=== PATIENT | female | born 1995 | race Caucasian/White ===

== ENCOUNTER 2023-12-06 15:35 | Inpatient (IN) | payer OTHER, SELFPAY ==
[2023-12-06] VITALS (40 sets, daily range): BP systolic 100–146; BP diastolic 58–81; PULSE 110–143; TEMP 37–37.1; O2SAT 97–100; BMI 24.4
[2023-12-06] MEDS: Lactated Ringers 1,000 ML 50 ML IV (15:50)
[2023-12-06 16:12] LABS: Absolute Lymphocyte Count 1.58 X10^3/uL (0.83-4.51); Absolute Neutrophil Count 18.6 X10^3/uL (2.0-7.7); Basophil# 0.06 X10^3/uL; Basophil% 0.3 % (0-1); Eosinophil# 0.02 X10^3/uL; Eosinophils% 0.1 % (0-5); Lymphocyte # 1.58 X10^3/ul (0.83-4.51); Lymphocyte % 7.2 % (19-41); Mean Corpuscular Hgb 21.3 pg (27.0-32.0); Mean Corpuscular Volume 70.9 fL (81-99); Mean Platelet Vol. 10.6 fl (6.2-12.0); Monocyte# 1.43 X10^3/uL; Monocyte% 6.5 % (0-10); NRBC Flagged by Analyzer 0 % (0-5); Neutrophil # 18.61 X10^3/uL (2.7-7.7); Neutrophil % 84.7 % (47-70); Platelet Count 416 K/mm3 (150-450); RBC Distribution Width CV 16.7 % (11.6-14.6); Red Blood Count 4.23 M/mm3 (4.2-5.4)
--- NOTE | 2023-12-06 16:26 | HP.PCM.OB_ITS ---
HPI - General General Date of Admission: 12/06/23 Date of Service: 12/06/23 HPI Narrative IRAIS MORA, is a 28 F who presents with LOF. Maternal Data Information Final GEORGIANA: 12/01/23 Gestational age: 40&5 PFSH PFSH Medical History (Updated 12/06/23 @ 16:[address] Brittany Sousa MD) Anxiety Surgical History (Updated 12/06/23 @ 16:[address] Brittany Sousa MD) [place] teeth removed NST FHR Rate Baby A Baseline: 130 Variability:: Minimal and Moderate Accelerations:: 15 x 15 Decelerations:: None NST Reactive:: Yes Uterine Activity:: Q 6 minutes Vital Signs Vital Signs Vital Signs: 12/06/23 15:04 12/06/23 15:04 12/06/23 15:09 Pulse Rate 143 H 139 H Pulse Ox 97 12/06/23 15:09 12/06/23 15:14 12/06/23 15:14 Pulse Rate 136 H Pulse Ox 97 97 12/06/23 15:20 12/06/23 15:20 12/06/23 15:25 Pulse Rate 120 H 122 H Pulse Ox 99 12/06/23 15:25 12/06/23 15:59 12/06/23 15:59 Pulse Rate 121 H Pulse Ox 98 98 12/06/23 16:04 12/06/23 16:04 12/06/23 16:09 Pulse Rate 120 H 121 H Pulse Ox 98 12/06/23 16:09 12/06/23 16:14 12/06/23 16:14 Pulse Rate 124 H Pulse Ox 99 99 12/06/23 16:19 12/06/23 16:19 12/06/23 16:24 Pulse Rate 122 H 124 H Pulse Ox 99 12/06/23 16:24 Pulse Rate Pulse Ox 99 Weight Weight: 147 lb Body Mass Index (BMI) 24.4 Physical Exam Const alert, oriented x3 and no apparent distress GI soft to palpation, non-tender and non-distended Inspection: gravid external exam normal Narrative: cvx - 1/70/-2 Extremity normal to inspection Labs Labs Labs: Blood Type Pending Antibody Screen Pending Hct 30.0 % (37-47) L Hgb 9.0 g/dL (12.0-15.0) L Syphilis Total Ab Pending See [facility] H&P Assessment & Plan (1) Post-term , 40-42 weeks of gestation: COMMENT: 28yo @ 40&5 PLAN: Plan Admit to L&D SROM - plan for induction with pitocin GBS negative EFW - less than 4500g, patient with adequate pelvis Pain - epidural as desired Routine care
[2023-12-06] MEDS: Oxytocin 15 Units/NS 250ml 15 UNITS/250 ML IV.SOLN 2 UNITS IV (16:30)
[2023-12-06 17:24] LABS: Syphilis Antibodies Non-reactive
[2023-12-06] MEDS: LACTATED RINGERS 500 ML 999 ML IV ×2 (22:05→23:17)
[2023-12-06] MEDS: fentaNYL-bupivacaine (epidural) 100 ML BAG EPIDURAL (23:10)
[2023-12-07] VITALS (27 sets, daily range): BP systolic 73–113; BP diastolic 46–67; PULSE 16–129; RESP 16–18; TEMP 36.3–37.2; O2SAT 96–100
[2023-12-07] MEDS: Lactated Ringers 1,000 ML 200 ML IV (00:09)
[2023-12-07] MEDS: LACTATED RINGERS 500 ML 999 ML IV ×2 (02:09→05:39)
[2023-12-07] MEDS: Mag Hydrox/Al Hydrox/Simeth 30 ML UDC PO (03:19)
[2023-12-07] MEDS: fentaNYL-bupivacaine (epidural) 100 ML BAG EPIDURAL (03:54)
[2023-12-07] MEDS: Cefazolin 2 GM in 0.9% Normal Saline (100mL Bag) 100 ML IV (07:28)
--- NOTE | 2023-12-07 07:38 | EX.PCM.OBRPT ---
Maternal Data Information Final GEORGIANA: 12/01/23 Gestational age: 40&6 Details Operative Information Date of Procedure: 12/07/23 Pre-Operative Diagnosis: (1) intolerance of labor Post-Operative Diagnosis: Same Indications for : Nonreassuring Status Indications Narrative: Patient had pitocin stopped overnight because of recurrent lates on pitocin. It was restarted and slowly increased to 4 units. Patient had recurrent lates again despite typical measures. She was counseled on R/B/A and decision made to proceed with . The patient was taken to the operating room where epidural anesthesia was dosed & found to be adequate. She was prepped and draped in the dorsal supine position with a leftward tilt. A Pfannenstiel skin incision was made approximately 2 cm above the symphysis pubis and carried through to the underlying fascia with the scalpel. The fascia was incised incised in the midline and extended laterally with the Guzman scissors. The rectus muscles were in the midline and the peritoneum was entered carefully and bluntly. The peritoneal incision was stretched and the bladder blade was inserted. Vesicouterine peritoneum was tented up, incised & then bladder flap created gently. The uterine incision was made in a low transverse fashion with the scalpel and extended superiorly and inferiorly with blunt dissection. The infant's head was brought to the incision in the flexed position and delivered without difficulty. The head was gently guided to allow delivery of the anterior and posterior shoulders. The body then delivered with fundal pressure in the standard fashion. The 3VC cord was clamped and cut in delayed fashion. The infant was handed off to the waiting physician pediatrician. The placenta was delivered with fundal massage and gentle traction in the standard fashion. The uterus was exteriorized and cleared of clots and debris. The uterine incision was closed with #1 Vicryl suture in a running locked fashion. Monocryl suture was used in an imbricating fashion. The incision was examined and was found to be hemostatic. The uterus was returned to the abdominal cavity. After irrigating Eliane was placed over the uterine incision as some areas were denuded (but hemostatic). The rectus muscle was examined and any bleeding was Bovie cauterized. The fascia was closed with PDS suture in a running standard fashion. The subcutaneous tissue was examining and any bleeding was Bovie cauterized. The subcutaneous tissue was reapproximated with interrupted sutures. The skin was closed in a subcuticular fashion by the TDP DISPLAYS ANALYST while I was present in the labor & delivery unit. The remainder of the procedure was performed by me with assistance. All sponge, lap, and needle counts were correct. The patient was taken to her room for recovery in a stable condition. Classification: KAILA Procedure Type: low transverse technology sales representative #1: Lan Stevens Type of Anesthesia: Spinal Antibiotic Given: Ancef 2 grams IV x1 and Zithromax 500 mg/5 mL X1 Drain: Cano to straight drain Estimated Blood Loss: 500ml Fluids Replaced: 1500ml Procedure Start Time: 07:50 Procedure Stop Time: 08:39 Findings Description of Procedure: Normal maternal uterus and adnexa Presentation: Positive for Vertex Amniotic Membrane Rupture Type: Artificial Amniotic Fluid Description: Clear Placental Delivery Description: Expressed Placenta Disposition: [facility] Cord Vessel Description: 3 Vessels Cord Entanglement: None Infant A Gender: Female (3640g) (1 minute): 8 (5 minute): 9 Delayed Cord Clamping: Yes Complications Complications: none
[2023-12-07] MEDS: Azithromycin 500 MG in Dextrose 5%-Water (250mL Bag) 250 ML 250 MG IV (08:15)
[2023-12-07] MEDS: Ketorolac 30 MG/ML Syringe IV ×3 (09:45→20:17)
[2023-12-07] MEDS: Oxytocin 15 Units/NS 250ml 15 UNITS/250 ML IV.SOLN 83 UNITS IV (09:48)
[2023-12-07] MEDS: Lactated Ringers 1,000 ML 100 ML IV (12:39)
[2023-12-07] MEDS: Acetaminophen 500 MG Tablet 1000 MG PO ×3 (12:42→23:36)
[2023-12-07] MEDS: Senna/Docusate Sodium 1 Tablet PO (13:34)
[2023-12-07 15:07] LABS: Absolute Lymphocyte Count 1.58 X10^3/uL (0.83-4.51); Basophil# 0.07 X10^3/uL; Basophil% 0.3 % (0-1); Eosinophil# 0.01 X10^3/uL; Hematocrit 21.5 % (37-47); Hemoglobin 6.4 g/dL (12.0-15.0); Lymphocyte # 1.58 X10^3/ul (0.83-4.51); Lymphocyte % 6.5 % (19-41); Mean Corp Hgb Conc 29.8 g/dL (32-36); Mean Corpuscular Hgb 21.1 pg (27.0-32.0); Mean Platelet Vol. 10.1 fl (6.2-12.0); Monocyte# 1.26 X10^3/uL; Monocyte% 5.2 % (0-10); NRBC Flagged by Analyzer 0 % (0-5); Neutrophil % 87.1 % (47-70); POSITIVE DIFFERENTIAL YES; Platelet Count 317 K/mm3 (150-450); RBC Distribution Width SD 43.2 fl (35.1-43.9); Red Blood Count 3.03 M/mm3 (4.2-5.4); White Blood Count 24.1 K/mm3 (4.4-11.0)
[2023-12-07 15:08] LABS: Differential Indicated SCAN CRITERIA MET
[2023-12-07 15:38] LABS: Anisocytosis 1+; Hypochromasia 1+; Microcytosis 1+; Ovalocyte RARE; Platelet Estimate ADEQUATE (ADEQ); Red Cell Morphology N CHROM NORMAL (NORM C&C)
[2023-12-07] MEDS: 0.9% Saline Lock 10 ML Syringe IV (20:18)
[2023-12-07] MEDS: Enoxaparin 40 MG/0.4 ML Syringe SC (20:18)
[2023-12-08] VITALS (9 sets, daily range): BP systolic 84–104; BP diastolic 53–76; PULSE 102–110; RESP 12–18; TEMP 36.4–36.8; O2SAT 98–100
[2023-12-08] MEDS: Ketorolac 30 MG/ML Syringe IV (03:18)
[2023-12-08] MEDS: 0.9% Saline Lock 10 ML Syringe IV ×3 (03:19→10:49)
[2023-12-08] MEDS: Acetaminophen 500 MG Tablet 1000 MG PO ×3 (05:33→18:06)
[2023-12-08 05:45] LABS: Hematocrit 21.4 % (37-47); Hemoglobin 6.4 g/dL (12.0-15.0); Mean Corp Hgb Conc 29.9 g/dL (32-36); Mean Corpuscular Hgb 21.6 pg (27.0-32.0); Mean Corpuscular Volume 72.3 fL (81-99); Mean Platelet Vol. 9.8 fl (6.2-12.0); Platelet Count 330 K/mm3 (150-450); RBC Distribution Width CV 17.1 % (11.6-14.6); RBC Distribution Width SD 43.8 fl (35.1-43.9); Red Blood Count 2.96 M/mm3 (4.2-5.4); White Blood Count 25.2 K/mm3 (4.4-11.0)
--- NOTE | 2023-12-08 06:10 | NURSING ---
This RN notified provider of hgb level of 6.4. Provider states she will talk with patient about possible blood transfusion. This RN and Nicolas DO not made aware of previous lab hgb lab result of 6.4 prior to this lab draw in report.
--- NOTE | 2023-12-08 07:08 | PN.OBGYN_ITS ---
Subjective Subjective Patient is doing well. She is fatigued. She has been ambulating without difficulty. She is spontaneously voiding without difficulty. Her pain is well- controlled. She denies any lightheadedness or dizziness. She denies chest pain, shortness of breath, leg pain. Lochia has been normal. She offers no complaints this morning other than fatigue. Objective Data Objective Data Vital Signs: Vital Signs Temp Pulse Resp BP Pulse Ox O2 Del Method 97.5 F L 108 H 16 94/54 L 99 Room Air 12/08/23 03:17 12/08/23 03:17 12/08/23 03:17 12/08/23 03:17 12/08/23 03:17 12/08/23 03:17 Oxygen Delivery Method Room Air Weight: 147 lb Body Mass Index (BMI) 24.4 Intake & Output: Intake and Output for Last 24 Hours 12/06/23 12/07/23 12/08/23 23:59 23:59 23:59 Intake Total 1199.24 / 1199.24 3582.63 / 3582.63 Output Total 275 / 275 3400 / 3400 Balance 924.24 / 924.24 182.63 / 182.63 Lab / Micro Data 12/08/23 05:40 Labs: Laboratory Results - last 24 hr 12/07/23 14:45: WBC 24.1 H, RBC 3.03 L, Hgb 6.4 L, Hct 21.5 L, MCV 71.0 L, MCH 21.1 L, MCHC 29.8 L, RDW Std Deviation 43.2, RDW Coeff of Kodak 17.0 H, Plt Count 317, MPV 10.1, Immature Gran % (Auto) 0.900, Neut % (Auto) 87.1 H, Lymph % (Auto) 6.5 L, [facility] % (Auto) 5.2, Eos % (Auto) 0.0, Baso % (Auto) 0.3, Absolute Neuts (auto) 21.0 H, Absolute Lymphs (auto) 1.58, Nucleated RBC % 0, Differential Comment SEE COMMENT, Platelet Estimate ADEQUATE, RBC Morphology N C HROM, Hypochromasia 1+, Anisocytosis 1+, Microcytosis 1+, Ovalocytes RARE 12/08/23 05:40: WBC 25.2 H, RBC 2.96 L, Hgb 6.4 L, Hct 21.4 L, MCV 72.3 L, MCH 21.6 L, MCHC 29.9 L, RDW Std Deviation 43.8, RDW Coeff of Kodak 17.1 H, Plt Count 330, MPV 9.8 Physical Exam Const alert and no apparent distress General Appearance: comfortable HEENT normocephalic Resp normal respiratory effort GI soft to palpation, non-tender and non-distended GI Narrative: dressing c/d/i Extremity no calf tenderness Assessment & Plan (1) Delivery by section: PLAN: The patient is postoperative day 1 from a section. She is doing well. Pain is well-controlled. Acute on chronic blood loss anemia noted. Discussed risk, benefits, alternatives to a blood transfusion. Patient desires to proceed with a blood transfusion. Will give 1 unit of packed red blood cells and repeat check CBC in the morning. Otherwise routine postoperative care. Anticipate discharge tomorrow. (2) Acute on chronic blood loss anemia:
[2023-12-08] MEDS: 0.9% Normal Saline 250 ML IV.SOLN. 15 ML IV (08:15)
[2023-12-08] MEDS: Senna/Docusate Sodium 1 Tablet PO (09:04)
[2023-12-08] MEDS: Ibuprofen 600 MG Tablet PO ×3 (09:04→20:31)
--- NOTE | 2023-12-08 09:46 | CASEMGMT ---
Social Work Brief assessment--Labor and Delivery Unit Date/Time of referral: 12/07/23, 16:21 Referred by: Dr. Lars Soto MD Date/Time of intervention: 12/08/23, 9:30am Reason for Referral: Anxiety Informant: Medical Record, MOB, FOB Assessment: SW met w/MOB and FOB in room, completed brief assessment and gave resources. Home composition: MOB and FOB have been together since 2018. Their home will be MOB, FOB and now baby Dodie. This is their first child, born 12/07/23 at 7:53am, 3640 g at , Apgars 8 and 9 at one and five minutes. Financial/Supplies: They have no financial concerns at this time. They have all needed supplies including car seat, crib, clothing, diapers, wipes, bottles, formula. They have two vehicles. FOB works, MOB plans to stay home. Caregivers/Support: MOB and FOB's parents, siblings. The grandparents are available and willing to babysit. They also have a supportive neighbor. Programs/Agencies/Legal issues/Children's Services: None Behavioral Health: FOB--reports no history of mental health. MOB--history of anxiety. She has never been in counseling or taken medication. She states she just gets worked up about things at times. Substance Abuse: MOB and FOB report no history of substance abuse. Family/Social Stressors: None Depression/Anxiety/Shaken baby/Safe Sleeping/crisis hotlines/mental health resources/Help Me Grow: SW gave MOB and FOB information on all of these topics and reviewed it with them, in particular information on depression and anxiety warning signs. SW encouraged MOB to speak w/her HUMAN RESOURCES DIRECTOR should she be experiencing symptoms, as at times physicians will prescribe a short term mood enhancer. SW also spoke w/MOB about counseling if it were to be needed. MOB states understanding. Plan: Baby to go home w/MOB and FOB. MOB and FOB both appropriate in conversation w/SW, open w/SW speaking w/them. MOB holding baby and care for baby appropriate at this time. They have no concerns for homegoing. SW does remain available should any concerns arise. Otherwise, no further social service needs anticipated at this time. JOVANI Green
[2023-12-08] MEDS: Enoxaparin 40 MG/0.4 ML Syringe SC (20:31)
[2023-12-09] MEDS: Acetaminophen 500 MG Tablet 1000 MG PO ×2 (00:15→05:56)
[2023-12-09 02:38] VITALS: BP 115/72; PULSE 104; RESP 18; TEMP 37.2; O2SAT 99
[2023-12-09] MEDS: Ibuprofen 600 MG Tablet PO ×2 (02:41→09:11)
[2023-12-09] MEDS: 0.9% Saline Lock 10 ML Syringe IV (05:56)
[2023-12-09 07:28] LABS: Hematocrit 23.8 % (37-47); Hemoglobin 7.4 g/dL (12.0-15.0); Mean Corp Hgb Conc 31.1 g/dL (32-36); Mean Corpuscular Hgb 23.3 pg (27.0-32.0); Mean Corpuscular Volume 75.1 fL (81-99); Mean Platelet Vol. 10.4 fl (6.2-12.0); Platelet Count 304 K/mm3 (150-450); RBC Distribution Width CV 19.5 % (11.6-14.6); RBC Distribution Width SD 52.1 fl (35.1-43.9); Red Blood Count 3.17 M/mm3 (4.2-5.4); White Blood Count 21.4 K/mm3 (4.4-11.0)
--- NOTE | 2023-12-09 08:26 | PCM.PN.OB ---
Subjective Subjective Is doing well this morning and offers no complaints. She desires to go home today. She feels some improvement after the 1 unit of blood. She is ambulating without lightheadedness or dizziness. She is tolerating regular diet without nausea or vomiting. Her pain has been well-controlled. Lochia is normal. She denies chest pain, shortness of breath, leg pain. Objective Data Objective Data Vital Signs: Vital Signs Temp Pulse Resp BP Pulse Ox O2 Del Method 98.9 F 104 H 18 115/72 99 Room Air 12/09/23 02:38 12/09/23 02:38 12/09/23 02:38 12/09/23 02:38 12/09/23 02:38 12/09/23 02:38 Oxygen Delivery Method Room Air Weight: 147 lb Body Mass Index (BMI) 24.4 Intake & Output: Intake and Output for Last 24 Hours 12/07/23 12/08/23 12/09/23 23:59 23:59 23:59 Intake Total 3582.63 / 3582.63 Output Total 3400 / 3400 1000 / 1000 Balance 182.63 / 182.63 -999 / -999 Lab / Micro Data 12/09/23 06:00 Labs: Laboratory Results - last 24 hr 12/06/23 15:50: Crossmatch See Detail 12/09/23 06:00: WBC Cancelled 12/09/23 06:00: WBC 21.4 H, Corrected WBC Cancelled, RBC Cancelled 12/09/23 06:00: RBC 3.17 L, Hgb Cancelled 12/09/23 06:00: Hgb 7.4 L, Hct Cancelled 12/09/23 06:00: Hct 23.8 L, MCV Cancelled 12/09/23 06:00: MCV 75.1 L, MCH Cancelled 12/09/23 06:00: MCH 23.3 L, MCHC Cancelled 12/09/23 06:00: MCHC 31.1 L, RDW Std Deviation Cancelled 12/09/23 06:00: RDW Std Deviation 52.1 H, RDW Coeff of Kodak Cancelled 12/09/23 06:00: RDW Coeff of Kodak 19.5 H, Plt Count Cancelled 12/09/23 06:00: Plt Count 304, MPV Cancelled 12/09/23 06:00: MPV 10.4, Diff Path Review Cancelled Physical Exam Const alert and no apparent distress General Appearance: comfortable HEENT normocephalic Resp normal respiratory effort GI soft to palpation, non-tender and non-distended GI Narrative: FF@U-2, dressing c/d/i Extremity normal to inspection and no calf tenderness Assessment & Plan (1) Acute on chronic blood loss anemia: PLAN: S/p 1 unit PRBC's. No symptoms of anemia. Repeat CBC pending this AM. (2) Delivery by section: PLAN: The patient is postoperative day 2 from a section. She desires discharge. She is meeting milestones. Reviewed discharge instructions with the patient and she is to follow-up in the office for incision check.
--- NOTE | 2023-12-09 08:31 | DCINST_ITS ---
Discharge Instructions Diet Discharge Diet: No restrictions Activity Discharge Activity: May Drive (once you are not longer needing pain medication, and you feel strong enough to slam on a brake or turn a steering wheel sharply) May resume sexual activity in: 6 weeks Ice area for (Minutes): 15 Weight Bearing Status: Weight bearing as tolerated Lifting Restrictions: nothing heavier than baby Dressing / Incision Call your doctor if your incision/area has: Continuous Slow Oozing, Sudden Increased Bleeding, Increased Pain/ Swelling, Increased Redness, Foul Smelling Discharge and Swelling at the incision site Call your doctor if you observe: Fever of 101 or Higher, Coldness, Increased Pain, Numbness or Tingling, Change in Color, Inability to urinate, Inability to have a bowel movement, Using more than 1 pad per hour, Shortness of breath, Dizziness, Fainting spells, Swelling in the ankles, Chest pain, Prolonged hiccupping, Increased palpitations (irregular heartbeat), Calf discomfort and Uncontrolled pain Suture Line Care: Avoid Pulling/Pushing and Avoid Pinching/Bending Remove Dressing in: 2 days Cleanse incision/area with: Soap & Water Follow Up Care Please Follow Up With: Brittany Sousa MD When: 1-2 weeks for incision check 6 week exam Test Results: Test results from this visit will be discussed in further detail at your follow- up appointment, if applicable. Discharge Plan Admission Admit Date/Time: 12/06/23 15:35 Attending Provider: Brittany Sousa Primary Care Provider: Vera Rodríguez,No Primary Instructions Patient Instructions: After a Discharge Orders/Prescriptions Prescriptions: New oxycodone-acetaminophen [Percocet] 5-325 mg tablet 1 tab PO Q6H PRN (Reason: pain) 7 Days Qty: 10 0RF docusate sodium [Colace] 100 mg capsule 100 mg PO DAILY Qty: 30 0RF ibuprofen 600 mg tablet 600 mg PO Q6H PRN (Reason: pain) Qty: 30 0RF ferrous sulfate 325 mg (65 mg iron) tablet,delayed release (DR/EC) 325 mg PO QODAY Qty: 30 0RF Continued DHA 200 mg capsule 200 mg PO DAILY Discontinued aspirin [Aspirin Childrens] 81 mg tablet,chewable 1 tab PO DAILY Referrals / Follow Up: Care Physician,No Primary [Primary Care Provider] - Disposition Disposition (needs filled in before D/C Order can be placed): Home, Self Care
--- NOTE | 2023-12-09 08:33 | DS.PCM_ITS ---
Providers Date of Admission: 12/06/23 Date of Discharge: 12/09/23 Primary Care Physician: No Primary Care Phys Reason For Visit: PRIMARY C SCTION Diagnosis Discharge Diagnosis (1) Acute on chronic blood loss anemia: Status: Chronic Code(s): D62 - Acute posthemorrhagic anemia Plan: S/p 1 unit PRBC's. No symptoms of anemia. Repeat CBC pending this AM. (2) Delivery by section: Status: Acute Plan: The patient is postoperative day 2 from a section. She desires discharge. She is meeting milestones. Reviewed discharge instructions with the patient and she is to follow-up in the office for incision check. Medications at Discharge Home Medications docosahexaenoic acid 200 mg capsule ( DHA) 200 mg PO DAILY 12/06/23 docusate sodium 100 mg capsule (Colace) 100 mg PO DAILY constipation #30 caps 12/09/23 ferrous sulfate 325 mg (65 mg iron) tablet,delayed release 325 mg PO QODAY #30 tabs 12/09/23 ibuprofen 600 mg tablet 600 mg PO Q6H PRN pain #30 tabs 12/09/23 oxycodone-acetaminophen 5 mg-325 mg tablet (Percocet) 1 tab PO Q6H PRN pain 7 days #10 tabs 12/09/23 Hospital Course Operations section Summary of Care Provided Minutes Spent on Discharge: 15 Hospital Course: The patient presented at 40 weeks gestation with spontaneous rupture of membranes. Her labor was augmented and she underwent a section for f etal intolerance to labor. See operative report for details. She had acute on chronic blood loss anemia. She was given 1 unit of packed red blood cells and her hemoglobin was stable. On postoperative day 2 her pain was controlled. She is ambulating and voiding without difficulty. She was tolerating a regular diet. She was discharged home in good condition. Weight / BMI Weight Weight: 147 lb Body Mass Index (BMI) 24.4 ABG / Lab / Microbiology Data 12/09/23 06:00 Laboratory: Laboratory Results - last 24 hr 12/06/23 15:50: Crossmatch See Detail 12/09/23 06:00: WBC Cancelled 12/09/23 06:00: WBC 21.4 H, Corrected WBC Cancelled, RBC Cancelled 12/09/23 06:00: RBC 3.17 L, Hgb Cancelled 12/09/23 06:00: Hgb 7.4 L, Hct Cancelled 12/09/23 06:00: Hct 23.8 L, MCV Cancelled 12/09/23 06:00: MCV 75.1 L, MCH Cancelled 12/09/23 06:00: MCH 23.3 L, MCHC Cancelled 12/09/23 06:00: MCHC 31.1 L, RDW Std Deviation Cancelled 12/09/23 06:00: RDW Std Deviation 52.1 H, RDW Coeff of Kodak Cancelled 12/09/23 06:00: RDW Coeff of Kodak 19.5 H, Plt Count Cancelled 12/09/23 06:00: Plt Count 304, MPV Cancelled 12/09/23 06:00: MPV 10.4, Diff Path Review Cancelled D/C Instructions Discharge Diet: No restrictions May resume sexual activity in: 6 weeks Ice area for (Minutes): 15 Weight Bearing Status: Weight bearing as tolerated Call your doctor if your incision/area has: Continuous Slow Oozing, Sudden Increased Bleeding, Increased Pain/ Swelling, Increased Redness, Foul Smelling Discharge and Swelling at the incision site Call your doctor if you observe: Fever of 101 or Higher, Coldness, Increased Pain, Numbness or Tingling, Change in Color, Inability to urinate, Inability to have a bowel movement, Using more than 1 pad per hour, Shortness of breath, Dizziness, Fainting spells, Swelling in the ankles, Chest pain, Prolonged hiccupping, Increased palpitations (irregular heartbeat), Calf discomfort and Uncontrolled pain Suture Line Care: Avoid Pulling/Pushing and Avoid Pinching/Bending Cleanse incision/area with: Soap & Water Please Follow Up With: Brittany Sousa MD When: 1-2 weeks for incision check 6 week exam Meaningful Use Info Meaningful Use Diagnoses (Choose all that apply): None applicable Discharge Plan Admission Admit Date/Time: 12/06/23 15:35 Attending Provider: Brittany Sousa Primary Care Provider: Care Physician,No Primary Instructions Patient Instructions: After a Discharge Orders/Prescriptions Prescriptions: New oxycodone-acetaminophen [Percocet] 5-325 mg tablet 1 tab PO Q6H PRN (Reason: pain) 7 Days Qty: 10 0RF docusate sodium [Colace] 100 mg capsule 100 mg PO DAILY Qty: 30 0RF ibuprofen 600 mg tablet 600 mg PO Q6H PRN (Reason: pain) Qty: 30 0RF ferrous sulfate 325 mg (65 mg iron) tablet,delayed release (DR/EC) 325 mg PO QODAY Qty: 30 0RF Continued DHA 200 mg capsule 200 mg PO DAILY Discontinued aspirin [Aspirin Childrens] 81 mg tablet,chewable 1 tab PO DAILY Referrals / Follow Up: Care Physician,No Primary [Primary Care Provider] - Disposition Disposition (needs filled in before D/C Order can be placed): Home, Self Care
[2023-12-09 08:35] VITALS: BP 113/74; PULSE 95; RESP 16; TEMP 36.4; O2SAT 100
[2023-12-09] MEDS: Senna/Docusate Sodium 1 Tablet PO (09:11)
== END 2023-12-09 10:40 | disposition home or self-care (01) | DRG 787 ==
LOC: WPOUT 15:41 → WP 15:41
PROVIDERS: Obstetrics & Gynecology; Admitting Provider Obstetrics & Gynecology; Referring Provider Obstetrics & Gynecology; Visit Provider Obstetrics & Gynecology
DX: O48.0 Post-term pregnancy (principal); D62 Acute posthemorrhagic anemia; O76 Abnormality in fetal heart rate and rhythm complicating labor and delivery; O90.81 Anemia of the puerperium; Z37.0 Single live birth; Z3A.40 40 weeks gestation of pregnancy
CPT/HCPCS: 59025; 59050; 85025; 85027; 86780; 86850; 86900; 86901; 86920; 99221; J7050; J7120; P9016; A4216; G0378; J2405